=== PATIENT | female | born 2000 | race African-American/Black ===

== ENCOUNTER 2020-10-22 10:59 | Emergency (ER) | payer MEDICAID, SELFPAY ==
[2020-10-22 11:01] VITALS: BP 117/68; PULSE 65; RESP 16; TEMP 36.2; O2SAT 100
--- NOTE | 2020-10-22 13:16 | ED.GENADULT ---
HPI - General Adult General Chief complaint: Skin/Abscess/Foreign Body Stated complaint: skin issue Time Seen by Provider: 10/22/20 11:49 Source: patient Mode of arrival: ambulatory Limitations: no limitations History of Present Illness HPI narrative: Patient presents for evaluation of pruritic rash to the chest, abdomen, back and right upper extremity for the last 3-1/2 weeks. No new lotions, soaps, detergents, topical products. She was evaluated at [place] urgent [facility] and was given a prescription for triamcinolone. She did not have improvement in her symptoms so she returned was given a prescription for clotrimazole. Her symptoms were not improved without medication either. She recently went to the emergency department in [place], where she was visiting, about 1 week ago. She was given prescriptions for triamcinolone, Vistaril, neither of which she filled. She denies any difficulty breathing or swallowing. She denies any involvement of the palmar aspects of her hands or plantar aspects of her feet. She states she is not sexually active. She was advised to follow-up with a patient safety coordinator. She states that she goes to school in the area and is from [place] originally. She does not have an established primary care provider in this area. Related Data Allergies Allergy/AdvReac Type Severity Reaction Status Date / Time No Known Allergies Allergy Verified 10/22/20 11:51 Review of Systems Review of Systems: Narrative: CONSTITUTIONAL: Denies fever, chills, or sweats. EYES: Denies visual changes, redness, or discharge. ENT: Denies rhinorrhea, congestion, sore throat, or otalgia. CARDIOVASCULAR: Denies chest pain, palpitations, or edema. RESPIRATORY: Denies cough or dyspnea. GASTROINTESTINAL: Denies abdominal pain, nausea, vomiting, or diarrhea. GENITOURINARY: Denies dysuria or hematuria. SKIN: Reports pruritic rash to the chest, abdomen, back and right upper extremity MUSCULOSKELETAL: Denies back pain, joint pain, or myalgia. NEUROLOGIC: Denies headache, numbness, dizziness, or weakness. PSYCHIATRIC: Denies anxiety or depression. PMFSH Social History Social History Gender identity (if verbalized by the patient): Female Exam Narrative: Exam Narrative: GENERAL: Well-appearing, well-nourished, and in no acute distress. HEAD: Normocephalic, atraumatic. EYES: PERRLA and EOMI. ENT: Nares clear, no rhinorrhea or epistaxis. Mucous membranes moist. Oropharynx without tonsillar hypertrophy exudate or other lesions. Bilateral TMs pearly mora nonbulging NECK: Supple. No adenopathy or masses. No carotid bruits or JVD CHEST: Clear to auscultation. No respiratory distress. No wheezes rales or rhonchi HEART: Regular rate and rhythm. No murmur heard. Normal peripheral pulses. ABDOMEN: Soft, nontender, nondistended, normal active bowel sounds. EXTREMITIES: Normal range of motion. No edema. SKIN: There are from the ER for multiple tender points of hyperpigmentation with flat hyperpigmented macules to the back. Multiple flat hyperpigmented macules with overlying scaling noted to the chest and abdomen. NEURO: No focal deficits. Alert and oriented x3. PSYCH: Normal mood and affect. Course Course Emergency Course: This is a 20-year-old female who presented with reports of rash for the last three weeks for which she has been evaluated by multiple providers. Symptoms have been refractory to triamcinolone and clotrimazole. On exam she is mixed pattern of lesions that vary in appearance. She indicates she is not sexually active however I would anticipate that she would respond to topical antifungal or topical steroid. Therefore RPR was ordered. Lesions on her chest and abdomen appear to be fungal in nature and lesions on the back appear to be some type of contact dermatitis. She was given an injection of Solu-Medrol emergency department. We will discharge with a prescription for oral steroids and a alternative antifungal. She was advised to follow
[2020-10-22] MEDS: methylPREDNISolone SOD SUCC 125 MG VIAL IM (13:25)
[2020-10-24 09:17] LABS: Rapid Plasma Reagin Non-Reactive (NonReactive)
== END 2020-10-22 13:56 | disposition home or self-care (01) ==
PROVIDERS: Emergency Provider Nurse Practitioner
DX: R21 Rash and other nonspecific skin eruption (principal); L29.9 Pruritus, unspecified
CPT/HCPCS: 36415; 81025; 86592; 96372; 99283; J2930

== ENCOUNTER 2021-10-22 08:30 | Emergency (ER) | payer MEDICAID, SELFPAY ==
[2021-10-22 08:39] VITALS: BP 118/58; PULSE 76; RESP 18; TEMP 36.2; O2SAT 100
[2021-10-22 08:57] LABS: Basophils Absolute Auto 0.1 K/mm3 (0.0-0.1); Basophils Percent Auto 0.8 % (0.2-1.2); Eosinophils Absolute Auto 0.3 K/mm3 (0-0.3); Eosinophils Percent Auto 4.5 % (0-4.4); Hematocrit 39.4 % (37.0-47.0); Hemoglobin 12.6 g/dL (12.0-15.0); Immature Granulocyte Absolute 0.02 K/mm3 (0.00-0.031); Immature Granulocyte Percent A 0.3 % (0-0.5); Lymphocytes Absolute Auto 2.11 K/mm3 (0.9-3.2); Lymphocytes Percent Auto 35.5 % (18.3-44.2); Mean Corpuscular Hemoglobin 28.5 pg (26-34); Mean Corpuscular Volume 89.1 fl (80-100); Mean Platelet Volume 12.6 fl (7.4-10.4); Monocytes Absolute Auto 0.4 K/mm3 (0.1-0.6); Monocytes Percent Auto 7.1 % (2.6-8.5); Neutrophils Absolute Auto 3.1 K/mm3 (1.3-6.7); Neutrophils Percent Auto 51.8 % (45.5-73.1); Platelet Count Result 156 k/mm3 (150-375); Red Blood Count 4.42 M/mm3 (4.2-5.4); Red Cell Distribution Width 15.1 % (11.5-14.5)
--- NOTE | 2021-10-22 09:07 | ED.ABDPAIN ---
HPI - Abdominal Pain General Chief Complaint: Abdominal Pain Stated Complaint: Vomiting, ABD Pain Time Seen by Provider: 10/22/21 08:43 Source: patient and RN notes reviewed Mode of arrival: ambulatory Limitations: no limitations History of Present Illness HPI narrative: This is a 21 year old female who presents for evaluation of abdominal pain. She developed mid abdominal pain starting last night. This pain has been intermittent. Her pain is currently not present at this time. She has been having nausea, vomiting but she denies diarrhea. She also denies fever. Her last normal bowel movement was this morning. Patient has history of IBS but she states she does not get pain with her IBS. LMP 1 month ago . Urine test is negative today. Related Data Allergies Allergy/AdvReac Type Severity Reaction Status Date / Time banana Allergy Other Verified 10/22/21 08:48 Review of Systems Review of Systems: All systems reviewed & are unremarkable except as noted in HPI and below Constitutional: Constitutional: Denies chills, Denies fatigue and Denies fever(s) Cardiovascular: Cardiovascular: Denies chest pain Respiratory: Respiratory: Denies chest congestion Gastrointestinal: Gastrointestinal: Denies abdominal pain, Denies bloating, Reports nausea and Reports vomiting Genitourinary: Genitourinary: Denies hematuria, Denies dysuria and Denies pelvic pain Musculoskeletal: Musculoskeletal: Denies back pain Neurologic: Denies focal weakness [facility] Past Medical History Medical History (Updated 10/22/21 @ 10:50 by Didi Her MD) IBS (irritable bowel syndrome) Surgical History Surgical History (Updated 10/22/21 @ 09:13 by Didi Her MD) No pertinent past surgical history Social History Social History (Updated 10/22/21 @ 09:13 by Didi Her MD) Smoking status: Never smoker Gender identity (if verbalized by the patient): Female Exam Const: General: no acute distress and alert Orientation/consciousness: patient oriented x3 Limitations: no limitations HENMT: Ears: TM's normal bilaterally Face and sinus: normal facial exam Mouth: Yes Normal oral and palatal mucosa present Teeth and gingiva: dentition normal Throat: posterior oropharynx normal Eyes: Conjunctivae: conjunctivae normal EOM: EOMs intact bilaterally Resp: Effort & Inspection: normal respiratory effort Auscultation: clear to auscultation bilaterally and breath sounds present Cardio: Rate: regular rate Rhythm: regular rhythm Heart sounds: no murmurs GI: GI Palp: Yes Soft to palpation, No Tenderness to palpation present (GI), No Guarding due to palpation present (GI) and No Rigid due to palpation Auscultation: normal bowel sounds Back/Spine/Pelvis: Back: no CVA tenderness Skin: General skin exam: normal color Rashes: no rashes Neuro: General: patient oriented x3, moves all extremities and CN's II-XI intact bilaterally Psych: Mental Status: mental status grossly normal Affect: normal affect Attitude: cooperative Course Reevaluation(s) Reevaluation #1: PAtient states she feels much better. Labs are unremarkable. She is tolerating PO. She is stable for discharge. Date: 10/22/21 Time: 10:42 Vital Signs Vital signs: Vital Signs Temperature 97.2 F L 10/22/21 08:39 Pulse Rate 76 10/22/21 08:39 Respiratory Rate 18 10/22/21 08:39 Blood Pressure 118/58 L 10/22/21 08:39 Pulse Oximetry 100 10/22/21 08:39 Oxygen Delivery Room Air 10/22/21 08:39 Temperature 97.2 F L 10/22/21 08:39 Pulse Rate 68 10/22/21 10:58 Respiratory Rate 18 10/22/21 10:58 Blood Pressure 102/59 L 10/22/21 10:58 Pulse Oximetry 100 10/22/21 10:58 Oxygen Delivery Room Air 10/22/21 08:39 MDM - Abdominal Pain Lab Data Attestation: I reviewed the patient's lab results. Result diagrams: 10/22/21 08:51 10/22/21 08:51 Labs: Lab Results 10/22/21 06
[2021-10-22] MEDS: SODIUM CHLORIDE 0.9% IV 1,000 ML 999 ML IV CONT (09:09)
[2021-10-22] MEDS: ONDANSETRON INJ 4 MG/2 ML VIAL IV PUSH (09:10)
[2021-10-22 09:12] LABS: Appearance Urine Clear (Clear); Bilirubin Urine 1+ (Negative); Blood Urine Negative (Negative); Color Urine Yellow (Yellow); Glucose Urine UA Negative (Negative); Ketones Urine Negative (Negative); Leukocyte Esterase Ur Negative LEU/UL (Negative); Nitrate Urine Negative (Negative); Protein Urine Trace mg/dL (Negative); Specific Grav Ur >= 1.030 (1.001-1.035); Urobilinogen Urine 0.2 mg/dL (<2.0); pH Urine 5.5 (5.0-9.0)
[2021-10-22 09:16] LABS: Alanine Aminotransferase 13 U/L (6-35); Albumin Level 4.5 g/dL (3.5-5.1); Alkaline Phosphatase 48 U/L (38-126); Anion Gap 6 mmol/L (8-16); Aspartate Amino Transferase 25 U/L (14-36); Bilirubin,Total 0.9 mg/dL (0.2-1.3); Blood Urea Nitrogen 11 mg/dL (7-17); Calcium 8.9 mg/dL (8.4-10.2); Carbon Dioxide 24 mmol/L (22-30); Chloride 108 mmol/L (98-107); Estimated CRCL calculation 92 ml/min; Estimated Glomerular Filt Rate > 60; Glucose 96 mg/dL (65-110); Lipase 97 U/L (23-300); Potassium 3.6 mmol/L (3.4-5.0); Sodium 138 mmol/L (137-145)
[2021-10-22 09:28] LABS: Mucus Urine Heavy /lpf; Squamous Epithelial Cell Urine Moderate /hpf (Few)
[2021-10-22 09:32] LABS: Add Urine Microscopic? YES
[2021-10-22 10:31] VITALS: BP 102/59; PULSE 63; RESP 18; O2SAT 100
[2021-10-22 10:58] VITALS: BP 102/59; PULSE 68; RESP 18; O2SAT 100
== END 2021-10-22 11:00 | disposition home or self-care (01) ==
PROVIDERS: Emergency Provider General Practice
DX: R10.84 Generalized abdominal pain (principal); R11.2 Nausea with vomiting, unspecified; K58.9 Irritable bowel syndrome, unspecified
CPT/HCPCS: 36415; 80053; 81001; 81025; 83690; 85025; 96361; 96374; 99284; J2405; J7030

== ENCOUNTER 2022-01-22 10:06 | Emergency (ER) | payer MEDICAID, SELFPAY ==
--- NOTE | ~2022-01-22 | US_ITS ---
EXAMINATION: US pelvic complete DATE: 01/22/2022 13:14 INDICATION: Right lower quadrant pain TECHNIQUE: Multiple transabdominal and endovaginal sonographic images of the pelvis were obtained. COMPARISON: None. FINDINGS: The uterus measures 7.6 x 3.2 x 4.3 cm. The endometrial complex measures 4 mm. The right ov kai measures 7.4 x 2.8 x 3.8 cm. There is a 4.2 x 2.9 x 3.3 cm hypoechoic mass of the right ovary wit h posterior acoustic enhancement. The left ovary measures 3.4 x 2 x 2.7 cm. There is normal vascular flow in the ovaries. There is no free fluid in the pelvis. IMPRESSION: 1. Probable hemorrhagic cyst or endometrioma of the right ovary. Follow-up ultrasound in 8-12 weeks i s recommended. Reviewed, dictated and finalized at location B. IMPRESSION: 1. Probable hemorrhagic cyst or endometrioma of the right ovary. Follow-up ultr asound in 8-12 weeks is recommended.
--- NOTE | ~2022-01-22 | CT_ITS ---
EXAMINATION: CT abdomen pelvis w con INDICATION: Right lower quadrant pain TECHNIQUE: Computed tomographic images of the abdomen and pelvis were obtained after the administrati on of 100 cc of Omnipaque 350 intravenous contrast. The dose-length product (DLP) was 216.94 mGy-cm. Automated exposure control and iterative reconstruction technique were employed. COMPARISON: None available FINDINGS: The lung bases are clear. The heart size is normal. There appears to be focal fatty infiltr ation of the liver near the ligamentum teres. The spleen, pancreas, gallbladder, and adrenal glands a re normal. The kidneys are unremarkable. No pathologically enlarged abdominal or pelvic lymph nodes a re identified. There is no free intraperitoneal gas or evidence of bowel obstruction. The appendix is normal. There is a 3.8 x 3.7 cm cystic lesion in the pelvis to the right of midline posterior to the uterus. IMPRESSION: 1. Cystic lesion of the pelvis of the right of midline likely related to the right adnexa. Further ev aluation with pelvic ultrasound is recommended. Reviewed, dictated and finalized at location B. IMPRESSION: 1. Cystic lesion of the pelvis of the right of midline likely related to the ri ght adnexa. Further evaluation with pelvic ultrasound is recommended.
[2022-01-22 10:08] VITALS: BP 108/55; PULSE 86; RESP 18; TEMP 36.1; O2SAT 100
[2022-01-22 10:24] LABS: Eosinophils Absolute Auto 0.2 K/mm3 (0-0.3); Eosinophils Percent Auto 5.4 % (0-4.4); Hematocrit 41.2 % (37.0-47.0); Hemoglobin 13.1 g/dL (12.0-15.0); Immature Granulocyte Absolute 0.01 K/mm3 (0.00-0.031); Immature Granulocyte Percent A 0.3 % (0-0.5); Lymphocytes Absolute Auto 1.42 K/mm3 (0.9-3.2); Lymphocytes Percent Auto 36.5 % (18.3-44.2); Mean Corpuscular HGB Conc 31.8 g/dl (32-36); Mean Corpuscular Volume 91.4 fl (80-100); Mean Platelet Volume 12.8 fl (7.4-10.4); Monocytes Absolute Auto 0.3 K/mm3 (0.1-0.6); Monocytes Percent Auto 6.9 % (2.6-8.5); Neutrophils Absolute Auto 1.9 K/mm3 (1.3-6.7); Neutrophils Percent Auto 49.9 % (45.5-73.1); Platelet Count Result 149 k/mm3 (150-375); Red Blood Count 4.51 M/mm3 (4.2-5.4); Red Cell Distribution Width 14.3 % (11.5-14.5); White Blood Count 3.9 K/mm3 (4.5-10.0)
[2022-01-22 10:36] LABS: Alanine Aminotransferase 15 U/L (6-35); Albumin Level 4.7 g/dL (3.5-5.1); Alkaline Phosphatase 49 U/L (38-126); Anion Gap 14 mmol/L (8-16); Aspartate Amino Transferase 27 U/L (14-36); Bilirubin,Total 0.4 mg/dL (0.2-1.3); Blood Urea Nitrogen 11 mg/dL (7-17); Calcium 9.2 mg/dL (8.4-10.2); Carbon Dioxide 23 mmol/L (22-30); Chloride 105 mmol/L (98-107); Estimated CRCL calculation 92 ml/min; Estimated Glomerular Filt Rate > 60; Glucose 92 mg/dL (65-110); Lipase 89 U/L (23-300); Sodium 142 mmol/L (137-145)
--- NOTE | 2022-01-22 11:10 | ED.ABDPAIN ---
HPI - Abdominal Pain General Chief Complaint: Abdominal Pain Stated Complaint: abd pain Time Seen by Provider: 01/22/22 10:43 History of Present Illness HPI narrative: 21-year-old female presents to the emergency room for evaluation of sudden onset of right lower quadrant pain. Pain is associated with nausea. Denies fevers. Pain is aggravated by certain movements. States is on her menstrual cycle right now. Reports pain is different than her regular menstrual pain. Denies diarrhea or constipation. Denies fevers. Related Data Allergies Allergy/AdvReac Type Severity Reaction Status Date / Time banana Allergy Other Verified 01/22/22 10:55 Review of Systems Review of Systems: CONSTITUTIONAL: Denies fever, chills, or sweats. EYES: Denies visual changes, redness, or discharge. ENT: Denies rhinorrhea, congestion, sore throat, or otalgia. CARDIOVASCULAR: Denies chest pain, palpitations, or edema. RESPIRATORY: Denies cough or dyspnea. GASTROINTESTINAL: Reports abdominal pain GENITOURINARY: Denies dysuria or hematuria. SKIN: Denies rash or itching. MUSCULOSKELETAL: Denies back pain, joint pain, or myalgia. NEUROLOGIC: Denies headache, numbness, dizziness, or weakness. PSYCHIATRIC: Denies anxiety or depression. [facility] Past Medical History Medical History IBS (irritable bowel syndrome) Surgical History Surgical History No pertinent past surgical history Social History Social History Smoking status: Never smoker Gender identity (if verbalized by the patient): Female Exam Narrative: GENERAL: Well-appearing, well-nourished, no physical limitations, and in no acute distress. HEAD: Normocephalic, atraumatic. EYES: Conjunctivae normal, PERRLA and EOMI. CHEST: Clear to auscultation. No respiratory distress. No wheezes rales or rhonchi. No tenderness. HEART: Regular rate and rhythm. No murmur heard. Normal peripheral pulses. ABDOMEN: Soft, right lower quadrant tenderness, nondistended, normal active bowel sounds. Negative heel strike. Positive psoas and obturator signs BACK: No CVA tenderness EXTREMITIES: Normal range of motion. No edema. No clubbing or cyanosis SKIN: Warm, dry, no rash. No noted wounds NEURO: No focal deficits. Alert and oriented x3. MAEW. CN's II-XI intact bilaterally, normal gait PSYCH: Cooperative. Normal mood and affect. Course Vital Signs Vital signs: Vital Signs Temperature 36.1 C L 01/22/22 10:08 Pulse Rate 86 01/22/22 10:08 Respiratory Rate 18 01/22/22 10:08 Blood Pressure 108/55 L 01/22/22 10:08 Pulse Oximetry 100 01/22/22 10:08 Oxygen Delivery Room Air 01/22/22 10:08 Temperature 36.1 C L 01/22/22 10:08 Pulse Rate 64 01/22/22 13:07 Respiratory Rate 18 01/22/22 13:07 Blood Pressure 104/69 01/22/22 13:07 Pulse Oximetry 100 01/22/22 13:07 Oxygen Delivery Room Air 01/22/22 10:08 MDM - Abdominal Pain Lab Data Result diagrams: 01/22/22 10:15 01/22/22 10:15 Labs: Lab Results 01/22/22 01/22/22 01/22/22 Range/Units 10:15 10:15 10:58 WBC 3.9 L (4.5-10.0) K/mm3 RBC 4.51 (4.2-5.4) M/mm3 Hgb 13.1 (12.0-15.0) g/dL Hct 41.2 (37.0-47.0) % MCV 91.4 (80-100) fl MCH 29.0 (26-34) pg MCHC 31.8 L (32-36) g/dl RDW 14.3 (11.5-14.5) % Plt Count 149 L (150-375) k/mm3 MPV 12.8 H (7.4-10.4) fl Immature Gran % (Auto) 0.3 (0-0.5) % Neut % (Auto) 49.9 (45.5-73.1) % Lymph % (Auto) 36.5 (18.3-44.2) % [place] % (Auto) 6.9 (2.6-8.5) % Eos % (Auto) 5.4 H (0-4.4) % Baso % (Auto) 1.0 (0.2-1.2) % Lymph # (Auto) 1.42 (0.9-3.2) K/mm3 [place]iken # (Auto) 0.3 (0.1-0.6) K/mm3 Eos # (Auto) 0.2 (0-0.3) K/mm3 Baso # (Auto) 0.0 (0.0-0.1) K/mm3 Abs Immat Gran (auto) 0.01 (0.00-0.031) K/m
[2022-01-22 11:12] LABS: Appearance Urine Clear (Clear); Bilirubin Urine Negative (Negative); Blood Urine 3+ (Negative); Color Urine Yellow (Yellow); Glucose Urine UA Negative (Negative); Ketones Urine Negative (Negative); Leukocyte Esterase Ur Negative LEU/UL (Negative); Nitrate Urine Negative (Negative); Protein Urine Negative (Negative); Urobilinogen Urine 0.2 mg/dL (<2.0)
[2022-01-22 11:27] LABS: Mucus Urine Rare /lpf; RBC Urine 21-50 /hpf (0-2); Squamous Epithelial Cell Urine Rare /hpf (Few); WBC Urine 0-3 /hpf
[2022-01-22] MEDS: SODIUM CHLORIDE 0.9% IV 1,000 ML 999 ML IV CONT (11:27)
[2022-01-22 11:31] LABS: Add Urine Microscopic? YES
--- NOTE | 2022-01-22 12:44 | PC.NURSE ---
Patient to ultrasound
[2022-01-22 13:07] VITALS: BP 104/69; PULSE 64; RESP 18; O2SAT 100
[2022-01-22] MEDS: KETOROLAC 30 MG/ML VIAL (*BKC) IV PUSH (13:07)
== END 2022-01-22 14:30 | disposition home or self-care (01) ==
PROVIDERS: Emergency Medicine; Emergency Provider Nurse Practitioner Family
DX: N83.201 Unspecified ovarian cyst, right side (principal)
CPT/HCPCS: 36415; 74177; 76856; 80053; 81001; 81025; 83690; 85025; 96361; 96374; 99284; J1885; J7030; Q9967

== ENCOUNTER 2022-04-07 22:05 | Emergency (ER) | payer MEDICAID, SELFPAY ==
[2022-04-07 22:10] VITALS: BP 122/72; PULSE 83; RESP 16; TEMP 36.9; O2SAT 100
[2022-04-07 22:58] LABS: Influenza A QL RT-PCR Negative (Negative); Influenza B QL RT-PCR Negative (Negative); SARS-CoV-2 RNA PCR Negative
--- NOTE | 2022-04-07 23:44 | PC.NURSE ---
patient left waiting room without being seen by provider
--- NOTE | 2022-04-07 23:48 | PC.NURSE ---
Pt LWBS. Pt upset because she has not been placed in an ED room by now. Pt is A/O x 4, does not appear in any acute distress. Pt ambulated from department with friends and her gait was steady.
== END 2022-04-07 23:48 | disposition left against medical advice (07) ==
PROVIDERS: Emergency Provider Emergency Medicine
DX: R51.9 Headache, unspecified (principal); Z20.822 Contact with and (suspected) exposure to COVID-19
CPT/HCPCS: 87636; 99199

== ENCOUNTER 2022-07-16 12:02 | Emergency (ER) | payer MEDICAID, SELFPAY ==
--- NOTE | ~2022-07-16 | XR_ITS ---
EXAMINATION: XR chest 2V DATE: 07/16/2022 13:08 INDICATION: Shortness of breath. Chest pain. TECHNIQUE: Frontal and lateral views of the chest were obtained. COMPARISON: CT abdomen and pelvis 01/22/2022 FINDINGS: There is no pneumonia, pleural effusion, or pneumothorax. The heart size is normal. IMPRESSION: 1. No acute cardiopulmonary disease. Reviewed, dictated and finalized at location A. [employer] WORK[employer]
--- NOTE | 2022-07-16 12:13 | ECG_ITS ---
Measurements Intervals [place] Rate: 95 P: 75 WA: 136 QRS: 90 QRSD: 82 T: -38 QT: 323 QTc: 406 Interpretive Statements SINUS RHYTHM WITH SINUS ARRHYTHMIA INCOMPLETE RIGHT BUNDLE BRANCH BLOCK DELAYED PRECORDIAL R/S TRANSITION ST-T WAVE ABNORMALITY IN INFERIOR LEADS- CONSIDER ISCHEMIA BASELINE ARTIFACT- I, III, AVL ABNORMAL ECG NO PREVIOUS ECG AVAILABLE FOR COMPARISON Electronically Signed On 07-16-2022 16:43:12 VISUAL C DEVELOPER by Elver Sanchez D.O.
[2022-07-16 12:14] VITALS: BP 112/68; PULSE 98; RESP 16; TEMP 36.8; O2SAT 100
[2022-07-16 12:28] LABS: Basophils Percent Auto 0.6 % (0.2-1.2); Eosinophils Percent Auto 0.5 % (0-4.4); Hematocrit 42.4 % (37.0-47.0); Hemoglobin 13.6 g/dL (12.0-15.0); Immature Granulocyte Absolute 0.02 K/mm3 (0.00-0.031); Immature Granulocyte Percent A 0.3 % (0-0.5); Lymphocytes Absolute Auto 1.15 K/mm3 (0.9-3.2); Lymphocytes Percent Auto 18.3 % (18.3-44.2); Mean Corpuscular HGB Conc 32.1 g/dl (32-36); Mean Corpuscular Hemoglobin 28.7 pg (26-34); Mean Corpuscular Volume 89.5 fl (80-100); Mean Platelet Volume 12.1 fl (7.4-10.4); Monocytes Absolute Auto 0.6 K/mm3 (0.1-0.6); Monocytes Percent Auto 9.9 % (2.6-8.5); Neutrophils Absolute Auto 4.4 K/mm3 (1.3-6.7); Neutrophils Percent Auto 70.4 % (45.5-73.1); Platelet Count Result 153 k/mm3 (150-375); Red Blood Count 4.74 M/mm3 (4.2-5.4); Red Cell Distribution Width 14.1 % (11.5-14.5); White Blood Count 6.3 K/mm3 (4.5-10.0)
[2022-07-16 12:37] LABS: Alanine Aminotransferase 20 U/L (6-35); Albumin Level 4.5 g/dL (3.5-5.1); Alkaline Phosphatase 67 U/L (38-126); Anion Gap 7 mmol/L (8-16); Aspartate Amino Transferase 28 U/L (14-36); Bilirubin,Total 0.5 mg/dL (0.2-1.3); Blood Urea Nitrogen 11 mg/dL (7-17); Calcium 9.2 mg/dL (8.4-10.2); Carbon Dioxide 24 mmol/L (22-30); Chloride 103 mmol/L (98-107); Estimated CRCL calculation 94 ml/min; Estimated Glomerular Filt Rate > 60; Glucose 95 mg/dL (65-110); Potassium 3.9 mmol/L (3.4-5.0); Sodium 134 mmol/L (137-145)
[2022-07-16 12:44] LABS: INR 1.2; Prothrombin Time 14.4 Seconds (11.1-14.7)
[2022-07-16 12:54] LABS: Troponin I < 0.012 ng/mL (0.000-0.034)
--- NOTE | 2022-07-16 15:22 | PC.NURSE ---
pt left d/t wait time encouraged to return if need be pt agreeable
== END 2022-07-16 15:30 | disposition left against medical advice (07) ==
LOC: ANHED 15:28
PROVIDERS: Emergency Provider Emergency Medicine
DX: R07.9 Chest pain, unspecified (principal)
CPT/HCPCS: 36415; 71046; 80053; 84484; 85025; 85610; 85730; 93005; 99199

== ENCOUNTER 2022-07-24 01:28 | Emergency (ER) | payer MEDICAID, SELFPAY ==
[2022-07-24 01:32] VITALS: BP 118/68; PULSE 78; RESP 16; TEMP 36.6; O2SAT 100
[2022-07-24 03:30] VITALS: BP 123/66; PULSE 64; RESP 14; O2SAT 100
--- NOTE | 2022-07-24 03:47 | ED.GENADULT ---
HPI - General Adult General Chief complaint: Allergic Reaction Stated complaint: allergic reaction Time Seen by Provider: 07/24/22 03:38 History of Present Illness HPI narrative: Patient 21-year-old female who presents the emergency department with chief complaint of hives. Patient reports that she started having hives yesterday reports no new medications no new lotions detergents or no new foods patient reports that she has taken some Benadryl that helped out somewhat but reports she has had return of the hives. Patient denies angioedema denies shortness of breath Related Data Allergies Allergy/AdvReac Type Severity Reaction Status Date / Time banana Allergy Other Verified 07/24/22 01:28 Review of Systems Review of Systems: A 10 system review of systems was completed on the patient and is negative except for what is stated in the HPI. Nursing and ancillary documentation was reviewed. [facility] Past Medical History Medical History Asthma IBS (irritable bowel syndrome) Surgical History Surgical History [place] teeth removed Family History Family History Father Heart disease Social History Social History Smoking status: Never smoker Alcohol intake: current Substance use: current Substance use type: marijuana Gender identity (if verbalized by the patient): Female Exam Narrative: GENERAL: Well-appearing, well-nourished, and in no acute distress. HEAD: Normocephalic, atraumatic. EYES: PERRLA and EOMI. ENT: Nares clear, no rhinorrhea or epistaxis. Mucous membranes moist. No angioedema, airway is open and patent no stridor NECK: Supple. CHEST: Clear to auscultation. No respiratory distress. HEART: Regular rate and rhythm. No murmur heard. Normal peripheral pulses. ABDOMEN: Soft, nontender, nondistended, normal active bowel sounds. EXTREMITIES: Normal range of motion. No edema. SKIN: Warm, dry, diffuse urticaria. NEURO: No focal deficits. Alert and oriented x3. PSYCH: Normal mood and affect. Course Vital Signs Vital signs: Vital Signs Temperature 36.6 C 07/24/22 01:32 Pulse Rate 78 07/24/22 01:32 Respiratory Rate 16 07/24/22 01:32 Blood Pressure 118/68 07/24/22 01:32 Pulse Oximetry 100 07/24/22 01:32 Oxygen Delivery Room Air 07/24/22 01:32 Temperature 36.6 C 07/24/22 01:32 Pulse Rate 64 07/24/22 03:30 Respiratory Rate 14 07/24/22 03:30 Blood Pressure 123/66 07/24/22 03:30 Pulse Oximetry 100 07/24/22 03:30 Oxygen Delivery Room Air 07/24/22 01:32 Medical Decision Making MDM Narrative Medical decision making narrative: Differential diagnosis includes anaphylaxis, urticaria, generalized allergic reaction, Patient received 60 mg of prednisone in the emergency department Vital Signs Vital Signs: Vital Signs Temperature 36.6 C 07/24/22 01:32 Pulse Rate 78 07/24/22 01:32 Respiratory Rate 16 07/24/22 01:32 Blood Pressure 118/68 07/24/22 01:32 Pulse Oximetry 100 07/24/22 01:32 Oxygen Delivery Room Air 07/24/22 01:32 Temperature 36.6 C 07/24/22 01:32 Pulse Rate 64 07/24/22 03:30 Respiratory Rate 14 07/24/22 03:30 Blood Pressure 123/66 07/24/22 03:30 Pulse Oximetry 100 07/24/22 03:30 Oxygen Delivery Room Air 07/24/22 01:32 Discharge Plan Discharge Clinical Impression: Urticaria Patient Disposition: Home, Self-Care Condition: Stable Instructions: Antibiotic Form, Urticaria (ED), Allergies (ED) Prescriptions: New prednisone 20 mg tablet 40 mg PO DAILY 5 Days Qty: 10 0RF No Action etonogestrel-ethinyl estradiol [EluRyng] 0.12-0.015 mg/24 hr ring 1 vag ring vaginal ONCE Qty: 3 1RF naproxen sodium 550 mg tablet 550 m
[2022-07-24] MEDS: predniSONE 20 MG TABLET 60 MG PO (03:55)
[2022-07-24 04:15] VITALS: BP 112/68; PULSE 65; RESP 16; O2SAT 100
== END 2022-07-24 04:15 | disposition home or self-care (01) ==
PROVIDERS: Emergency Provider Emergency Medicine
DX: L50.9 Urticaria, unspecified (principal); J45.909 Unspecified asthma, uncomplicated; K58.9 Irritable bowel syndrome, unspecified
CPT/HCPCS: 99283; J7512

== ENCOUNTER 2023-02-10 18:57 | Emergency (ER) | payer OTHER, SELFPAY ==
[2023-02-10 19:17] VITALS: BP 117/59; PULSE 85; RESP 16; TEMP 36.6; O2SAT 100
[2023-02-10 19:37] LABS: Basophils Percent Auto 0.6 % (0.2-1.2); Eosinophils Absolute Auto 0.2 K/mm3 (0-0.3); Eosinophils Percent Auto 3.1 % (0-4.4); Hematocrit 40.6 % (37.0-47.0); Hemoglobin 12.8 g/dL (12.0-15.0); Immature Granulocyte Absolute 0.01 K/mm3 (0.00-0.031); Immature Granulocyte Percent A 0.1 % (0-0.5); Lymphocytes Absolute Auto 2.31 K/mm3 (0.9-3.2); Lymphocytes Percent Auto 33.7 % (18.3-44.2); Mean Corpuscular HGB Conc 31.5 g/dl (32-36); Mean Corpuscular Hemoglobin 28.4 pg (26-34); Mean Corpuscular Volume 90.2 fl (80-100); Mean Platelet Volume 12.8 fl (7.4-10.4); Monocytes Absolute Auto 0.5 K/mm3 (0.1-0.6); Monocytes Percent Auto 7.6 % (2.6-8.5); Neutrophils Absolute Auto 3.8 K/mm3 (1.3-6.7); Neutrophils Percent Auto 54.9 % (45.5-73.1); Platelet Count Result 134 k/mm3 (150-375); Red Cell Distribution Width 14.1 % (11.5-14.5); White Blood Count 6.9 K/mm3 (4.5-10.0)
--- NOTE | 2023-02-10 19:43 | PC.NURSE ---
Patient comes to desk to state she did vomit bile once.
[2023-02-10 19:46] LABS: Alanine Aminotransferase 19 U/L (6-35); Albumin Level 4.6 g/dL (3.5-5.1); Alkaline Phosphatase 52 U/L (38-126); Anion Gap 10 mmol/L (8-16); Aspartate Amino Transferase 30 U/L (14-36); Bilirubin,Total 0.8 mg/dL (0.2-1.3); Blood Urea Nitrogen 14 mg/dL (7-17); Calcium 9.5 mg/dL (8.4-10.2); Carbon Dioxide 24 mmol/L (22-30); Chloride 106 mmol/L (98-107); Estimated CRCL calculation 92 ml/min; Estimated Glomerular Filt Rate > 60; Glucose 101 mg/dL (65-110); Lipase 137 U/L (23-300); Potassium 3.4 mmol/L (3.4-5.0); Sodium 140 mmol/L (137-145)
--- NOTE | 2023-02-10 20:51 | PC.NURSE ---
Patient comes to desk to state she wants to leave since the wait is too long. Patient states I'll just come back in the morning when the wait isn't long. This nurse informed patient of the risks of leaving before being seen by a provider and benefits of staying. Patient states thats okay, I'll just come back in the morning. Patient ambulated out of the ED with a steady gait with belongings in hand.
== END 2023-02-10 20:55 | disposition left against medical advice (07) ==
LOC: ANHED 21:10
PROVIDERS: Emergency Provider Physician Assistant
DX: R11.2 Nausea with vomiting, unspecified (principal)
CPT/HCPCS: 36415; 80053; 83690; 85025; 99199

== ENCOUNTER 2023-02-11 11:01 | Emergency (ER) | payer OTHER, SELFPAY ==
[2023-02-11 11:15] VITALS: BP 104/79; PULSE 96; RESP 16; TEMP 36.2; O2SAT 99
--- NOTE | 2023-02-11 14:16 | ED.GENADULT ---
HPI - General Adult General Chief complaint: Nausea/Vomiting/Diarrhea Stated complaint: n/v/d Time Seen by Provider: 02/11/23 16:06 Source: patient Mode of arrival: ambulatory Limitations: no limitations History of Present Illness HPI narrative: This is a 22-year-old female with PMH of IBS who presents to the ED with chief complaint of N/V/D onset 1 week ago and worse in the past 2 days. Reports generalized abdominal cramping whenever she has the urge for bowel movements. She states she has had greater than 5 episodes of loose stools per day since yesterday. Reports last episode of vomiting was last night. Reports difficulty with solid foods at home but was able to eat peanut butter crackers prior to arrival without difficulty. Tolerating liquids. Reports rectal discomfort with bowel movements. States she has had a hemorrhoid in the past and had 1 episode of rectal bleeding 2 days ago and none since. Denies fevers, chills, recent travel, hematemesis, LOC, chest pain, shortness of breath, cough. Related Data Allergies Allergy/AdvReac Type Severity Reaction Status Date / Time banana Allergy Other Verified 07/24/22 01:28 Review of Systems Review of Systems: All systems as dictated in HPI [facility] Past Medical History Medical History Asthma IBS (irritable bowel syndrome) Surgical History Surgical History [place] teeth removed Family History Family History Father Heart disease Social History Social History Smoking status: Never smoker Alcohol intake: current Substance use: current Substance use type: marijuana Gender identity (if verbalized by the patient): Female Exam Narrative: GENERAL: Well-appearing, well-nourished, and in no acute distress. HEAD: Normocephalic, atraumatic. EYES: PERRLA and EOMI. ENT: Nares clear, no rhinorrhea or epistaxis. Mucous membranes moist. Oropharynx without tonsillar hypertrophy exudate or other lesions. NECK: Supple. No adenopathy or masses. CHEST: No respiratory distress. Clear to auscultation. No wheezes rales or rhonchi HEART: Regular rate and rhythm. No murmur heard. Normal peripheral pulses. ABDOMEN: Soft, nontender, nondistended, normal active bowel sounds. MSK: Normal range of motion. No edema. SKIN: Warm, dry, no rash. NEURO: Alert and oriented x3. No focal deficits. PSYCH: Normal mood and affect. Course Vital Signs Vital signs: Vital Signs Temperature 97.2 F L 02/11/23 11:15 Pulse Rate 96 02/11/23 11:15 Respiratory Rate 16 02/11/23 11:15 Blood Pressure 104/79 02/11/23 11:15 Pulse Oximetry 99 02/11/23 11:15 Oxygen Delivery Room Air 02/11/23 11:15 Temperature 97.2 F L 02/11/23 11:15 Pulse Rate 96 02/11/23 11:15 Respiratory Rate 16 02/11/23 11:15 Blood Pressure 104/79 02/11/23 11:15 Pulse Oximetry 99 02/11/23 11:15 Oxygen Delivery Room Air 02/11/23 11:15 Medical Decision Making [facility] Narrative Medical decision making narrative: This is a 22-year-old female who presents to the ED with chief complaint of abdominal cramping and N/V/D for the last week or so. Vitals are normal. Exam is benign. No abdominal tenderness. low suspicion for acute abdomen based on exam. Lab work is largely unremarkable. UA does show some evidence of slight dehydration which is consistent with her recent vomiting and diarrhea. She has been monitored in the department without having episodes of emesis. Symptoms consistent with gastroenteritis versus IBS symptoms which she is known to have in the past. Prescription for Bentyl written. She is seeking PCP referral and 1 will be given today. Pt will be discharged in stable condition. Return precautions given and supportive measur
[2023-02-11 14:48] LABS: Basophils Percent Auto 0.7 % (0.2-1.2); Eosinophils Absolute Auto 0.2 K/mm3 (0-0.3); Eosinophils Percent Auto 2.9 % (0-4.4); Hematocrit 41.8 % (37.0-47.0); Hemoglobin 13.1 g/dL (12.0-15.0); Immature Granulocyte Absolute 0.02 K/mm3 (0.00-0.031); Immature Granulocyte Percent A 0.4 % (0-0.5); Lymphocytes Absolute Auto 1.82 K/mm3 (0.9-3.2); Lymphocytes Percent Auto 32.7 % (18.3-44.2); Mean Corpuscular HGB Conc 31.3 g/dl (32-36); Mean Corpuscular Hemoglobin 28.5 pg (26-34); Mean Corpuscular Volume 91.1 fl (80-100); Mean Platelet Volume 12.7 fl (7.4-10.4); Monocytes Absolute Auto 0.3 K/mm3 (0.1-0.6); Monocytes Percent Auto 5.8 % (2.6-8.5); Neutrophils Absolute Auto 3.2 K/mm3 (1.3-6.7); Neutrophils Percent Auto 57.5 % (45.5-73.1); Platelet Count Result 134 k/mm3 (150-375); Red Blood Count 4.59 M/mm3 (4.2-5.4); Red Cell Distribution Width 14.3 % (11.5-14.5); White Blood Count 5.6 K/mm3 (4.5-10.0)
[2023-02-11 14:56] LABS: Appearance Urine Clear (Clear); Bacteria Urine None Seen /hpf; Bilirubin Urine 1+ (Negative); Blood Urine Negative (Negative); Color Urine Dark Yellow (Yellow); Glucose Urine UA Negative (Negative); Ketones Urine Trace mg/dL (Negative); Leukocyte Esterase Ur Negative LEU/UL (Negative); Need Manual Microscopic Reviewed; Nitrate Urine Negative (Negative); Protein Urine Trace mg/dL (Negative); RBC Urine 0-2 /hpf (0-2); Squamous Epithelial Cell Urine None seen /hpf (Few); WBC Urine 0-5 /hpf
[2023-02-11 14:58] LABS: Specific Grav Ur 1.037 (1.001-1.035)
[2023-02-11 14:59] LABS: Add Urine Microscopic? YES; Alanine Aminotransferase 18 U/L (6-35); Albumin Level 4.6 g/dL (3.5-5.1); Alkaline Phosphatase 47 U/L (38-126); Anion Gap 10 mmol/L (8-16); Aspartate Amino Transferase 29 U/L (14-36); Bilirubin,Total 0.9 mg/dL (0.2-1.3); Blood Urea Nitrogen 12 mg/dL (7-17); Calcium 9.4 mg/dL (8.4-10.2); Carbon Dioxide 24 mmol/L (22-30); Chloride 106 mmol/L (98-107); Estimated CRCL calculation 104 ml/min; Estimated Glomerular Filt Rate > 60; Glucose 83 mg/dL (65-110); Lipase 81 U/L (23-300); Potassium 3.5 mmol/L (3.4-5.0); Sodium 140 mmol/L (137-145)
[2023-02-11 17:44] VITALS: BP 128/86; PULSE 84; RESP 16; O2SAT 99
== END 2023-02-11 17:44 | disposition home or self-care (01) ==
PROVIDERS: Emergency Provider Physician Assistant
DX: R10.84 Generalized abdominal pain (principal); J45.909 Unspecified asthma, uncomplicated
CPT/HCPCS: 36415; 80053; 81001; 81025; 83690; 85025; 99283

== ENCOUNTER 2023-02-25 15:48 | Emergency (ER) | payer OTHER, SELFPAY ==
[2023-02-25 16:12] VITALS: BP 107/68; PULSE 70; RESP 16; TEMP 37.2; O2SAT 100
--- NOTE | 2023-02-25 18:06 | PC.NURSE ---
Pt reports doing a suppository laxative Oct 12 but reports she had no success. Pt states she has been taking fiber packets daily and laxatives every other day and states she has not yet had a BM.
[2023-02-25 18:45] VITALS: BP 108/76; PULSE 74; RESP 18; O2SAT 100
--- NOTE | 2023-02-25 18:59 | ED.GENADULT ---
HPI - General Adult General Chief complaint: Abdominal Pain Stated complaint: constipation Time Seen by Provider: 02/25/23 18:07 Source: patient Mode of arrival: ambulatory Limitations: no limitations History of Present Illness HPI narrative: This is a 22-year-old female who presents to the ED with chief complaint of constipation for the past 6 days. Reports that she was recently seen by her dentist for root canal surgery and feels that she has been constipated ever since. Reports history of longstanding IBS and feels that this may be similar but she has never been constipated for so long before. States she is having some pain to the area where the surgery was done and has been eating a little less due to this. She also reports a longstanding history of external hemorrhoid but reports no pain or bleeding with this at this point. Denies fevers, chills, nausea, vomiting, diarrhea, chest pain, shortness of breath, trismus, drooling. The main reason she came in today was because she looked up her symptoms and is concerned for possible colon cancer Related Data Allergies Allergy/AdvReac Type Severity Reaction Status Date / Time banana Allergy Other Verified 02/25/23 18:08 Review of Systems Review of Systems: All systems as dictated in HPI [facility] Past Medical History Medical History Asthma IBS (irritable bowel syndrome) Surgical History Surgical History [place] teeth removed Family History Family History Father Heart disease Social History Social History Smoking status: Never smoker Alcohol intake: current Substance use: current Substance use type: marijuana Gender identity (if verbalized by the patient): Female Exam Narrative: GENERAL: Well-appearing, well-nourished, and in no acute distress. HEAD: Normocephalic, atraumatic. EYES: PERRLA and EOMI. ENT: Several sutures noted to the left upper gums with no swelling or drainage. There is an area of white exudate to the patient discussed the hard palate that is mildly tender. Floor the mouth is intact. No trismus or drooling. No muffled voice. Nares clear, no rhinorrhea or epistaxis. Mucous membranes moist. Oropharynx without tonsillar hypertrophy exudate or other lesions. NECK: Supple. No adenopathy or masses. CHEST: No respiratory distress. Clear to auscultation. No wheezes rales or rhonchi HEART: Regular rate and rhythm. No murmur heard. Normal peripheral pulses. ABDOMEN: Soft, grossly nontender, nondistended, normal active bowel sounds. Negative peritoneal signs. MSK: Normal range of motion. No edema. SKIN: Warm, dry, no rash. NEURO: Alert and oriented x3. No focal deficits. PSYCH: Normal mood and affect. Course Course Emergency Course: Called the patient after he realized that her referral sheets were not given. Left voicemail with PCP and GI doctor referral Vital Signs Vital signs: Vital Signs Temperature 99.0 F 02/25/23 16:12 Pulse Rate 70 02/25/23 16:12 Respiratory Rate 16 02/25/23 16:12 Blood Pressure 107/68 02/25/23 16:12 Pulse Oximetry 100 02/25/23 16:12 Oxygen Delivery Room Air 02/25/23 16:12 Temperature 97.7 F 02/25/23 19:32 Pulse Rate 62 02/25/23 19:32 Respiratory Rate 15 02/25/23 19:32 Blood Pressure 123/65 02/25/23 19:32 Pulse Oximetry 100 02/25/23 19:32 Oxygen Delivery Room Air 02/25/23 16:12 Medical Decision Making MDM Narrative Medical decision making narrative: This is a 22-year-old female who presents to the ED with chief complaint of constipation for the past 6 days. She has additional complaint of left upper dental pain after having procedure a week ago. Vitals are normal. Exam is benign. Sutures in place in th
[2023-02-25 19:32] VITALS: BP 123/65; PULSE 62; RESP 15; TEMP 36.5; O2SAT 100
== END 2023-02-25 19:33 | disposition home or self-care (01) ==
PROVIDERS: Emergency Provider Physician Assistant
DX: K58.1 Irritable bowel syndrome with constipation (principal); K08.89 Other specified disorders of teeth and supporting structures; Z98.818 Other dental procedure status; J45.909 Unspecified asthma, uncomplicated
CPT/HCPCS: 99283

== ENCOUNTER 2023-02-26 09:32 | Emergency (ER) | payer OTHER, SELFPAY ==
--- NOTE | ~2023-02-26 | CT_ITS ---
EXAMINATION: CT abdomen pelvis w con DATE: 02/26/2023 11:41 INDICATION: Abdominal pain TECHNIQUE: Computed tomography (CT) of the abdomen and pelvis was performed with 100 mL Omnipaque-350 intravenous contrast. Automated exposure control and iterative reconstruction technique were employe d. The dose-length product was 222.36 mGy-cm. COMPARISON: 01/22/2022 FINDINGS: Lung bases are clear. Heart size is normal. No pericardial or pleural effusion. Focal hepatic steatos is at the ligamentum teres. Gallbladder, spleen, pancreas, bilateral adrenal glands and kidneys are n ormal. Bowels including the appendix are normal. 3.5 cm left adnexal cyst. Bladder, anteverted uterus and right adnexa are unremarkable. Small amount of likely physiologic free fluid in the cul-de-sac. No abscess or free intraperitoneal gas. No pathologically enlarged abdominal or pelvic lymphadenopath y. Minimal lumbar levocurvature. Bones are otherwise unremarkable. IMPRESSION: 1. 3.5 cm left adnexal cyst and small amount of likely physiologic free fluid in the cul-de-sac. No o ther acute intra-abdominal/pelvic process. Reviewed, dictated and finalized at location A. IMPRESSION: 1. 3.5 cm left adnexal cyst and small amount of likely physiologic free fluid i n the cul-de-sac. No other acute intra-abdominal/pelvic process.
[2023-02-26 09:37] VITALS: BP 118/64; PULSE 91; RESP 16; TEMP 36.2; O2SAT 100
--- NOTE | 2023-02-26 10:07 | ED.GENADULT ---
HPI - General Adult General Chief complaint: Nausea/Vomiting/Diarrhea Stated complaint: Vomiting Time Seen by Provider: 02/26/23 09:45 History of Present Illness HPI narrative: Alpa aCmp is a 22 y/o female who presents today with reports of feeling constipated for about 1 week. She states she has tried stool softeners/ laxatives/ suppositories and still has not been able to pass any stool. She states that she has had some off and on nausea/vomiting and tried to eat this morning and couldn't keep it down. No past surgical hx, she states that she was evaluted here a couple weeks ago with the opposite symptoms and was evaluated here yesterday with the same complaints. She reports feeling hot this morning, no known fevers. Denies changes with urine No shortness of breath/ chest pain. Related Data Allergies Allergy/AdvReac Type Severity Reaction Status Date / Time banana Allergy Other Verified 02/26/23 09:51 Review of Systems Review of Systems: CONSTITUTIONAL: Denies fever, chills, or sweats. EYES: Denies visual changes, redness, or discharge. ENT: Denies rhinorrhea, congestion, sore throat, or otalgia. CARDIOVASCULAR: Denies chest pain, palpitations, or edema. RESPIRATORY: Denies cough or dyspnea. GASTROINTESTINAL: Reports of abdominal pain, nausea, vomiting, and constipation for 1 week GENITOURINARY: Denies dysuria or hematuria. SKIN: Denies rash or itching. MUSCULOSKELETAL: Denies back pain, joint pain, or myalgia. NEUROLOGIC: Denies headache, numbness, dizziness, or weakness. PSYCHIATRIC: Denies anxiety or depression. [facility] Past Medical History Medical History Asthma IBS (irritable bowel syndrome) Surgical History Surgical History [place] teeth removed Family History Family History Father Heart disease Social History Social History Smoking status: Never smoker Alcohol intake: current Substance use: current Substance use type: marijuana Gender identity (if verbalized by the patient): Female Exam Narrative: GENERAL: Well-appearing, well-nourished, and in no acute distress. HEAD: Normocephalic, atraumatic. EYES: PERRLA and EOMI. ENT: Nares clear, no rhinorrhea or epistaxis. Mucous membranes moist. Oropharynx without tonsillar hypertrophy exudate or other lesions. NECK: Supple. No adenopathy or masses. No carotid bruits or JVD CHEST: Clear to auscultation. No respiratory distress. No wheezes rales or rhonchi HEART: Regular rate and rhythm. No murmur heard. Normal peripheral pulses. ABDOMEN: Soft,nondistended, normal active bowel sounds, pain generalized with palpation, more to the left lower quadrant. EXTREMITIES: Normal range of motion. No edema. SKIN: Warm, dry, no rash. NEURO: No focal deficits. Alert and oriented x3. PSYCH: Normal mood and affect. Course Vital Signs Vital signs: Vital Signs Temperature 36.2 C L 02/26/23 09:37 Pulse Rate 91 02/26/23 09:37 Respiratory Rate 16 02/26/23 09:37 Blood Pressure 118/64 02/26/23 09:37 Pulse Oximetry 100 02/26/23 09:37 Oxygen Delivery Room Air 02/26/23 09:37 Temperature 36.2 C L 02/26/23 09:37 Pulse Rate 91 02/26/23 09:37 Respiratory Rate 16 02/26/23 09:37 Blood Pressure 118/64 02/26/23 09:37 Pulse Oximetry 100 02/26/23 09:37 Oxygen Delivery Room Air 02/26/23 09:37 Medical Decision Making MDM Narrative Medical decision making narrative: On exam pt is noted to have left lower quadrant pain She states no BM for 1 week even with the use of laxatives/ stool softeners and suppositories. She is also having nausea/vomiting Bowel sounds are present/ abdomen is soft Patient was evaluated here yesterday and sent home with constipation recommendations with strict return precaution
[2023-02-26 10:19] LABS: Basophils Percent Auto 0.7 % (0.2-1.2); Eosinophils Absolute Auto 0.1 K/mm3 (0-0.3); Eosinophils Percent Auto 0.9 % (0-4.4); Hematocrit 38.2 % (37.0-47.0); Hemoglobin 12.2 g/dL (12.0-15.0); Immature Granulocyte Absolute 0.01 K/mm3 (0.00-0.031); Immature Granulocyte Percent A 0.2 % (0-0.5); Lymphocytes Absolute Auto 1.14 K/mm3 (0.9-3.2); Lymphocytes Percent Auto 20.7 % (18.3-44.2); Mean Corpuscular HGB Conc 31.9 g/dl (32-36); Mean Platelet Volume 12.2 fl (7.4-10.4); Monocytes Absolute Auto 0.3 K/mm3 (0.1-0.6); Monocytes Percent Auto 5.3 % (2.6-8.5); Neutrophils Percent Auto 72.2 % (45.5-73.1); Platelet Count Result 132 k/mm3 (150-375); Red Cell Distribution Width 13.7 % (11.5-14.5); White Blood Count 5.5 K/mm3 (4.5-10.0)
[2023-02-26 10:29] LABS: Lactic Acid Reflex 1.2 mmol/L (0.7-2.0); Potassium 3.8 mmol/L (3.4-5.0)
[2023-02-26 10:32] LABS: Alanine Aminotransferase 12 U/L (6-35); Albumin Level 4.1 g/dL (3.5-5.1); Alkaline Phosphatase 46 U/L (38-126); Anion Gap 9 mmol/L (8-16); Aspartate Amino Transferase 21 U/L (14-36); Bilirubin,Total 0.6 mg/dL (0.2-1.3); Blood Urea Nitrogen 15 mg/dL (7-17); Calcium 8.8 mg/dL (8.4-10.2); Carbon Dioxide 24 mmol/L (22-30); Chloride 106 mmol/L (98-107); Estimated CRCL calculation 75 ml/min; Estimated Glomerular Filt Rate > 60; Glucose 85 mg/dL (65-110); Sodium 139 mmol/L (137-145)
[2023-02-26 10:44] LABS: Appearance Urine Clear (Clear); Bilirubin Urine Negative (Negative); Blood Urine Negative (Negative); Color Urine Yellow (Yellow); Glucose Urine UA Negative (Negative); Ketones Urine 2+ mg/dL (Negative); Leukocyte Esterase Ur Negative LEU/UL (Negative); Nitrate Urine Negative (Negative); Protein Urine Negative (Negative); Specific Grav Ur 1.008 (1.001-1.035); Urobilinogen Urine 0.2 mg/dL (<2.0)
[2023-02-26 11:03] LABS: Add Urine Microscopic? NO
[2023-02-26] MEDS: SODIUM CHLORIDE 0.9% IV 1,000 ML 999 ML IV CONT (11:16)
[2023-02-26] MEDS: KETOROLAC 30 MG/ML VIAL (*BKC) IV PUSH (11:16)
[2023-02-26 12:48] VITALS: BP 114/51; PULSE 62; RESP 18; O2SAT 100
== END 2023-02-26 12:52 | disposition home or self-care (01) ==
PROVIDERS: Emergency Provider Nurse Practitioner Family
DX: K29.70 Gastritis, unspecified, without bleeding (principal); J45.909 Unspecified asthma, uncomplicated; K58.1 Irritable bowel syndrome with constipation; N94.89 Other specified conditions associated with female genital organs and menstrual cycle
CPT/HCPCS: 36415; 74177; 80053; 81003; 81025; 83605; 85025; 96361; 96374; 99284; J1885; J7030; Q9967